=== PATIENT | female | born 1995 | race Caucasian/White ===

== ENCOUNTER 2017-09-04 02:49 | Emergency (ER) | payer OTHER ==
[~2017-09-04] VITALS: Ht 172.7 cm; Wt 70.0 kg
[~2017-09-04 02:49] MED LIST: CITA20TA4 PO; FERR325T51 PO; OMEP40CA PO
[2017-09-04 03:03] VITALS: TEMP 36.8; Ht 172.7 cm; Wt 70.0 kg
[2017-09-04] MEDS ORDERED: SODIUM CHLORIDE 0.9% 1000ML 1,000 ML IV STA (03:07)
[2017-09-04] MEDS ORDERED: ZLF/50 PO (03:17)
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
[2017-09-04] MEDS ORDERED: ONDANSETRON HOME PACK 4MG OD TAB ONE (03:26)
[2017-09-04 03:40] LABS: BASO % 0.5 %; BASO ABS # 0.04 K/uL (0-0.2); EOS % 0.4 %; EOS ABS # 0.03 K/uL (0-0.5); HEMATOCRIT 37.9 % (37-47); HEMOGLOBIN 12.8 g/dL (12.0-16.0); IG# 0.03 K/uL (0.00-0.02); LYMPH % 16.4 %; MEAN CELL VOLUME 76.9 fL (80-100); MEAN CORPUSCULAR HGB CONC 33.8 g/dl (32-36); MEAN PLATELET VOLUME 11.1 fL (7.4-10.4); MONO % 8.7 %; MONO ABS # 0.74 K/uL (0.11-0.59); NEUT % 73.6 %; NEUT ABS # 6.29 K/uL (1.4-6.5); PLATELET COUNT 283 K/uL (130-400); RED CELL DISTRIBUTION WIDTH CV 16.7 % (11.5-14.5); RED CELL DISTRIBUTION WIDTH SD 46.9 fL (36.4-46.3); WHITE BLOOD COUNT 8.53 K/uL (4.8-10.8)
[2017-09-04] MEDS ORDERED: OPTIRAY 320 IV PRN (03:45)
[2017-09-04 03:56] LABS: ALBUMIN 4.1 gm/dl (3.4-5.0); CALCIUM 9.1 mg/dl (8.5-10.1); CREATININE 0.74 mg/dl (0.60-1.20); POTASSIUM 3.7 mmol/L (3.5-5.1)
[2017-09-04 03:58] LABS: TOTAL PROTEIN 7.7 gm/dl (6.4-8.2)
[2017-09-04 04:38] LABS: ISTAT CREATININE 0.7 mg/dl (0.6-1.3); ISTAT IONIZED CALCIUM 1.23 mmol/l (1.12-1.32); ISTAT POTASSIUM 3.8 mEq/L (3.3-5.0)
[2017-09-04] MEDS ORDERED: ACETAMINOPHEN IV 100 ML IV STA (04:41)
[2017-09-04] MEDS ORDERED: KETOROLAC TROMETHAMINE 30 MG/ML VIAL IV STA (05:50)
[2017-09-04 05:55] VITALS: BP 125/88; PULSE 89; O2SAT 99
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
== END 2017-09-04 06:30 | disposition home or self-care (01) ==
LOC: EDBD 02:49 → C.EDB 02:52
DX: S09.90XA Unspecified injury of head, initial encounter (principal); M25.511 Pain in right shoulder; M25.521 Pain in right elbow; S60.511A Abrasion of right hand, initial encounter; S60.512A Abrasion of left hand, initial encounter; T14.8XXA Other injury of unspecified body region, initial encounter; V49.88XA Car occupant (driver) (passenger) injured in other specified transport accidents, initial encounter; Y92.488 Other paved roadways as the place of occurrence of the external cause; F17.210 Nicotine dependence, cigarettes, uncomplicated

== ENCOUNTER 2018-11-23 00:14 | Inpatient (IN) ==
[2018-11-23] MEDS ORDERED: OXYTOCIN 30 UNITS/500 ML BAG IV PRN ×2 (01:01→06:44)
[2018-11-23] MEDS ORDERED: PENICILLIN G POTASSIUM 3 MU in DEXTROSE 5% 100 ML IV PRN (01:01)
[2018-11-23] MEDS ORDERED: PENICILLIN G POTASSIUM 6 MU in DEXTROSE 5% 250 ML IV STA (01:01)
[2018-11-23] MEDS: LACTATED RINGER'S 1,000 ML IV PRN ×2 (01:09→02:54)
--- NOTE | 2018-11-23 01:09 | History & Physical Report ---
Date of Service November 23, 2018 Assessment & Plan (1) SROM (spontaneous rupture of membranes): 23 yo at 38.5 wks with SROM, in early labor VSS Afebrile FHR ressuring GBS+ Plan admit, monitor, labs, PCN, Epidural for pain History of Present Illness Chief Complaint: Leaking of fluids Primary Care Provider: Jackie Short MD Patient is a 23 yo at 38.5 wks who has been leaking amniotic fluid since 11 pm last night It has been clear Ctxs started right after Not vey painful yet +FM's Her has been complicated by 1) Chlamydia + at NOB, repeat x2 were negative 2) GBS+ 3) h/o anxiety, was on Zoloft, off meds, feels well Allergies Allergy/AdvReac Type Severity Reaction Status Date / Time shellfish derived Allergy Anaphylaxis Unverified 04/09/18 17:24 Home Medications Home Medications Medication Instructions Recorded Confirmed Type ferrous sulfate 325 mg PO DAILY 11/13/18 11/13/18 History vit-iron fum-folic ac 1 tab PO DAILY 11/13/18 11/13/18 History [ Vitamin] Patient History Medical History Chest pain (Acute) Anxiety (Chronic) Throat irritation (Resolved) Anxiety (Chronic) Chest pain (Inactive) Family History Other Hypertension Social History Preferred Language: Danish Communication Ability: Effective Visual Impairment: No Limitations Hearing Ability: Normal marital status: Single Feels Safe at Home: Yes Smoking Status: Former smoker Second Hand Exposure: No Hx Alcohol Use: No Hx Substance Use: No ENGAGEMENT LIAISON History Denies h/o STD's, no h/o HSV +Chlamydia per records Review of Systems All systems reviewed & are unremarkable except as noted in HPI & below Physical Exam Constitutional: WD/WN, vitals as above well developed and + thin Comfortably smiling Genitourinary: Amnisure positive VE; 3/ 80%/ -2, vertex Results & Data Vital Signs (Past 12 Hours) Vital Signs Temp Pulse Resp BP 11/23/18 00:37 36.9 C 95 H 18 131/88 Monitoring External Monitor Categ I Tocodynamometer [place]: ctxs q 2-3min
[2018-11-23 01:28] LABS: Mean Corpuscular Hgb Conc 35.1 g/dL (32-36); Mean Corpuscular Volume 76.9 fL (80-100); Mean Platelet Volume 10.5 fL (7.4-10.4); Platelet Count 324 K/uL (130-400); RDW Coefficient of Variation 17.8 % (11.5-14.5); Red Blood Count 4.81 M/uL (4.2-5.4)
[2018-11-23] MEDS ORDERED: fentaNYL citrate 100 MCG/2 ML VIAL ONE (01:50)
[2018-11-23] MEDS ORDERED: ePHEDrine sulfate 50 MG/ML AMP ONE (01:50)
[2018-11-23] MEDS ORDERED: BUPIVACAINE 0.25% 30 ML VIAL ONE (01:50)
[2018-11-23] MEDS ORDERED: fentaNYL 2MCG/ML ROPIV 1.25MG/ML 100 ML BAG EPI ONE (01:51)
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
[2018-11-23] MEDS ORDERED: NALBUPHINE HCL INJ 10 MG/ML AMP IV PRN (02:43)
[2018-11-23] MEDS ORDERED: fentaNYL 2MCG/ML ROPIV 1.25MG/ML 100 ML BAG EPI PRN (02:43)
[2018-11-23] MEDS ORDERED: DiphenhydrAMINE HCL 50 MG/ML VIAL IV PRN (02:43)
[2018-11-23] MEDS ORDERED: ePHEDrine sulfate 50 MG/ML AMP IV PRN (02:43)
[2018-11-23] MEDS ORDERED: LACTATED RINGER'S 1,000 ML IV PRN (02:43)
[2018-11-23] MEDS ORDERED: ONDANSETRON INJ 2 MG/ML 2 ML VIAL IV PRN (02:43)
[2018-11-23] MEDS ORDERED: NALOXONE HCL 0.4 MG/1 ML VIAL/CARP IV PRN (02:43)
[2018-11-23] MEDS ORDERED: NALOXONE HCL 1 MG in SODIUM CHLORIDE 0.9% 1000ML 1,000 ML IV PRN (02:43)
[2018-11-23] MEDS ORDERED: BENZOCAINE 20% AER SPR 82.5 GM CAN EXT PRN (06:44)
[2018-11-23] MEDS ORDERED: HYDROCORTISONE ACETATE 25 MG SUPP PR PRN (06:44)
[2018-11-23] MEDS ORDERED: ACETAMINOPHEN 325 MG TAB PO PRN (06:44)
[2018-11-23] MEDS ORDERED: VARICELLA VIRUS VACCINE LIVE VIAL SQ ONE (06:44)
[2018-11-23] MEDS ORDERED: SUPERCREAM 0.870% 15 GM JAR EXT PRN (06:44)
[2018-11-23] MEDS ORDERED: DIPHTHERIA/TETANUS/PERTUSSIS 0.5 ML SYR/VIAL IM ONE (06:44)
[2018-11-23] MEDS ORDERED: BISACODYL 10 MG SUPP PR PRN (06:44)
--- NOTE | 2018-11-23 06:49 | Procedure Note ---
Vaginal Delivery Summary Date of Service November 23, 2018 Supervising Physician Co-Signing Physician Notes Delivery note live male RAJAN over intact perineum with nuchal cord x1 reduced at delivery. Delayed cord clamping followed by cord blood and spontaneous delivery of intact placenta. No tears. EBL 200 ml. Final sponge and instrument count are correct. Mom and baby stable.
--- NOTE | 2018-11-23 08:07 | Anesthesia Procedure Note ---
Date of Service November 23, 2018 Anesthesia Post Epidural Note Vital Signs Vital Signs: Temp Pulse Resp BP Pulse Ox 11/23/18 07:47 92 H 127/83 11/23/18 07:33 91 H 127/79 11/23/18 07:17 89 118/75 11/23/18 07:05 91 H 94 11/23/18 07:02 88 126/65 11/23/18 07:00 95 H 95 11/23/18 06:55 102 H 93 11/23/18 06:50 93 H 93 11/23/18 06:49 98 H 18 139/75 11/23/18 06:45 106 H 95 11/23/18 06:40 111 H 93 11/23/18 06:38 103 H 133/63 11/23/18 06:35 110 H 94 11/23/18 06:30 112 H 18 94 11/23/18 06:25 105 H 87 L 11/23/18 06:20 117 H 95 11/23/18 06:15 106 H 96 11/23/18 06:10 91 H 94 11/23/18 06:07 89 136/69 11/23/18 06:05 95 H 94 11/23/18 06:00 92 H 18 95 11/23/18 05:55 96 H 96 11/23/18 05:54 92 H 134/76 11/23/18 05:50 88 95 11/23/18 05:45 92 H 96 11/23/18 05:40 89 96 11/23/18 05:38 93 H 137/89 11/23/18 05:35 106 H 96 11/23/18 05:30 95 H 18 94 11/23/18 05:25 95 H 94 11/23/18 05:22 96 H 119/76 11/23/18 05:20 89 94 11/23/18 05:15 104 H 95 11/23/18 05:10 36.8 C 88 93 11/23/18 05:07 96 H 131/72 11/23/18 05:05 104 H 96 11/23/18 05:00 92 H 18 94 11/23/18 04:55 89 92 11/23/18 04:52 88 120/74 11/23/18 04:50 95 H 94 11/23/18 04:45 99 H 93 11/23/18 04:40 98 H 94 11/23/18 04:37 97 H 127/84 11/23/18 04:35 91 H 94 11/23/18 04:30 98 H 95 11/23/18 04:25 98 H 94 11/23/18 04:22 96 H 130/84 11/23/18 04:20 93 H 95 11/23/18 04:15 94 H 95 11/23/18 04:10 96 H 93 11/23/18 04:08 96 H 122/85 11/23/18 04:05 88 94 11/23/18 04:00 91 H 18 93 11/23/18 03:55 90 95 11/23/18 03:52 92 H 136/78 11/23/18 03:50 90 94 11/23/18 03:45 93 H 94 11/23/18 03:40 94 H 93 11/23/18 03:37 83 141/83 H 11/23/18 03:35 97 H 94 11/23/18 03:30 89 18 94 11/23/18 03:25 102 H 96 11/23/18 03:23 90 112/67 11/23/18 03:20 86 94 11/23/18 03:15 85 94 11/23/18 03:10 79 93 11/23/18 03:05 85 95 11/23/18 03:04 36.7 C 11/23/18 03:03 90 123/84 11/23/18 03:00 94 H 94 11/23/18 02:58 89 120/78 11/23/18 02:55 90 114/66 98 11/23/18 02:54 100 H 109/62 11/23/18 02:52 94 H 113/70 11/23/18 02:50 91 H 119/71 98 11/23/18 02:48 102 H 127/74 11/23/18 02:46 103 H 113/68 11/23/18 02:45 106 H 97 11/23/18 02:44 100 H 114/77 11/23/18 02:40 98 H 94 11/23/18 02:37 99 H 94 11/23/18 02:35 109 H 97 11/23/18 02:30 95 H 97 11/23/18 02:25 85 97 11/23/18 02:20 102 H 98 11/23/18 02:16 88 131/79 11/23/18 02:15 90 95 11/23/18 01:06 36.9 C 95 H 18 131/88 11/23/18 00:37 36.9 C 95 H Notes Mental Status: alert / awake / arousable Patient Amnestic to Procedure: No Nausea / Vomiting: adequately controlled Pain: adequately controlled Airway Patency, RR, SpO2: stable & adequate BP & HR: stable & adequate Hydration State: stable & adequate Neuraxial Anesthesia: was administered and sensory block is resolving Anesthetic Complications: no major complications apparent and Pt Satisfied with anesthetic care Epidural: Removed without complications and With tip intact
[2018-11-23] MEDS: PRENATAL VITAMIN 1 TAB PO SCH (09:41)
[2018-11-23] MEDS: DOCUSATE SODIUM 100 MG CAP PO SCH ×2 (09:41→19:54)
[2018-11-23] MEDS: FERROUS SULFATE 325 MG TAB PO SCH (09:41)
[2018-11-23] MEDS ORDERED: NON-FORMULARY MEDICATION (Prenatal Vit-Iron Fum-Folic Ac [Prenatal Vitamin] 1 TAB) PO SCH (11:35)
[2018-11-23] MEDS ORDERED: FERROUS SULFATE 325 MG TAB PO SCH (11:45)
[2018-11-23] MEDS: IBUPROFEN 600 MG TAB PO PRN (19:52)
[2018-11-24] MEDS: IBUPROFEN 600 MG TAB PO PRN (04:23)
[2018-11-24 07:32] LABS: Hematocrit (blood only) 37.6 % (37-47); Hemoglobin 12.6 g/dL (12.0-16.0); Mean Corpuscular Hgb Conc 33.5 g/dL (32-36); Mean Platelet Volume 10.4 fL (7.4-10.4); Platelet Count 297 K/uL (130-400); RDW Coefficient of Variation 18.1 % (11.5-14.5); RDW Standard Deviation 52.2 fL (36.4-46.3); Red Blood Count 4.82 M/uL (4.2-5.4); White Blood Count 12.87 K/uL (4.8-10.8)
--- NOTE | 2018-11-24 08:50 | Obstetrical Progress Note ---
Date of Service November 24, 2018 Assessment & Plan (1) normal course: PPD #1 Pt doing well anticipate disch tomorrow Subjective Ambulation: ambulating normally Voiding: no voiding problems Passing Gas:: Yes Diet Tolerance:: regular diet Lochia:: Small Feeding Type:: breast feeding Review of Systems All systems reviewed & are unremarkable except as noted in HPI & below Physical Exam Vital Signs (Past 24 Hours) Last Vital Signs Temp 36.6 C 11/24/18 03:15 Pulse 88 11/24/18 03:15 Resp 14 11/24/18 03:15 BP 114/75 11/24/18 03:15 Pulse Ox 97 11/24/18 03:15 Constitutional WD/WN, vitals as above well developed and well nourished Eyes PERRL, conjunctivae normal, anicteric sclerae Neck trachea midline, no thyromegaly Respiratory normal respiratory effort, lungs clear to auscultation Auscultation: no crackles, no rales and no wheezes Cardiovascular RRR, no murmur, no edema Gastrointestinal (Abdomen) normal bowel sounds, soft, nontender, no hepatosplenomegaly Uterus is below umbilicus Musculoskeletal no cyanosis or clubbing, extremities motor strength 5/5 Skin no rashes, warm and dry Neurologic patellar DTR's 2+ bilat, sensation intact Psychiatric A+Ox3, euthymic affect Genitourinary normal external appearance
[2018-11-24] MEDS: IBUPROFEN SUSPENSION 100MG/5ML 120ML PO PRN ×2 (09:22→16:32)
[2018-11-24] MEDS: FERROUS SULFATE 325 MG TAB PO SCH (09:27)
[2018-11-24] MEDS: DOCUSATE SODIUM 100 MG CAP PO SCH ×2 (09:27→20:14)
[2018-11-24] MEDS: PRENATAL VITAMIN 1 TAB PO SCH (09:27)
[2018-11-24] MEDS ORDERED: BISACODYL 5 MG TABEC PO SCH (20:00)
[2018-11-25 07:08] LABS: Hematocrit (blood only) 37.8 % (37-47); Hemoglobin 12.8 g/dL (12.0-16.0)
[2018-11-25] MEDS: PRENATAL VITAMIN 1 TAB PO SCH (09:39)
[2018-11-25] MEDS: DOCUSATE SODIUM 100 MG CAP PO SCH (09:39)
[2018-11-25] MEDS: FERROUS SULFATE 325 MG TAB PO SCH (09:39)
[2018-11-25] MEDS: IBUPROFEN SUSPENSION 100MG/5ML 120ML PO PRN (09:43)
--- NOTE | 2018-11-25 10:21 | Obstetrical Progress Note ---
Date of Service November 25, 2018 Subjective doing well passing gas bottle feeding Physical Exam Constitutional: WD/WN, vitals as above comfortable Abdomen soft fundus firm no edema neg zac's for d/c home today Results & Data Vital Signs (Past 12 Hours) Vital Signs Temp Pulse Resp BP 11/25/18 07:25 36.9 C 82 20 118/77 11/24/18 23:30 36.5 C 77 18 124/78
== END 2018-11-25 13:30 | disposition home or self-care (01) | DRG 807 ==
LOC: OPB 00:14 → 4S1 00:19 → 4S2 08:56

== ENCOUNTER 2021-08-06 07:26 | Inpatient (IN) ==
[2021-08-06] MEDS ORDERED: OXYTOCIN 30 UNITS/500 ML BAG IV PRN ×3 (08:16→19:13)
[2021-08-06 08:40] LABS: Hematocrit (blood only) 35.7 % (37-47); Hemoglobin 11.6 g/dL (12.0-16.0); Mean Corpuscular Hemoglobin 27.4 pg (25-34); Mean Corpuscular Hgb Conc 32.5 g/dL (32-36); Mean Corpuscular Volume 84.2 fL (80-100); Mean Platelet Volume 11.1 fL (7.4-10.4); Platelet Count 224 K/uL (130-400); RDW Coefficient of Variation 18.5 % (11.5-14.5); RDW Standard Deviation 57.1 fL (36.4-46.3); Red Blood Count 4.24 M/uL (4.2-5.4); White Blood Count 10.14 K/uL (4.8-10.8)
[2021-08-06] MEDS ORDERED: PENICILLIN G POTASSIUM 6 MU in DEXTROSE 5% 250 ML IV STA (08:57)
[2021-08-06] MEDS: LACTATED RINGER'S 1,000 ML IV PRN ×2 (09:15→14:42)
--- NOTE | 2021-08-06 09:18 | History & Physical Report ---
Date of Service August 06, 2021 Assessment & Plan (1) Post-dates : Plan: Will start antibiotics for GBS start Oxytocin for induction Admission and Anticipated Discharge Date Admission Date: August 06, 2021 History of Present Illness Chief Complaint: induction of labor for post-dates Primary Care Provider: Jackie Short MD 25 F P1001 at 40.4 weeks admitted for induction of labor for post-dates. GBS is positive. Patient recently diagnosed with Covid on 06/16/22 ` Allergies Allergy/AdvReac Type Severity Reaction Status Date / Time shellfish derived Allergy Severe Anaphylaxis Verified 02/25/21 15:50 Home Medications Medication Instructions Recorded Confirmed Type vitamins no.144-folic 1 tab PO DAILY 02/25/21 02/25/21 History acid 400 mcg chewable tablet () Patient History Medical History Anxiety No current meds Normal echocardiogram Panic attack Right scapula fracture Surgical History Ganglion cyst Family History Other Hypertension Social History Smoking Status: Former smoker Tobacco Type: E-cigarettes / Vaping Age Started Using Tobacco: 19 (less than a year ); Age Quit Using Tobacco: 19 (less than a year ); packs per day: 0.05; Years Smoked: 1; Smoking End Date: 19; Number of Years Since Quit: 1; Second Hand Exposure: No; Do You Dip or Chew Tobacco: No; Tobacco Cessation Education Requested by Patient: No Hx Alcohol Use: No Hx Substance Use: No Preferred Language: Yoruba Communication Ability: Effective Visual Impairment: No Limitations Hearing Ability: Normal Outsole Flexer Required: No Beliefs That Will Affect Care: None marital status: Single Current Living Situation: Family and Significant Other Current Living Situation Comment: Lives with FOB, FOB mother current occupational status: unemployed Other Information That Helps Us Care for You: No Feels Safe at Home: Yes Safety Concerns: Feels Safe At This Time Childhood Exposure to Second-Hand Smoke: No caffeine: Yes (1 daily ) during the past year weight has: increased > 10 lbs Dental Care, Regularly: Yes Physical Activity Frequency: Daily Seatbelt Use: always Sunscreen Use: Yes Do you think of yourself as: straight/heterosexual Sexual Activity: has been sexually active within the last 12 months Gender Identity: Female Assistive Devices: None 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 Review of Systems All systems reviewed & are unremarkable except as noted in HPI & below Physical Exam Constitutional: WD/WN, vitals as above comfortable Eyes: PERRL, conjunctivae normal, anicteric sclerae Respiratory: normal respiratory effort, lungs clear to auscultation Cardiovascular: RRR, no murmur, no edema Skin: no rashes, warm and dry Neurologic: patellar DTR's 2+ bilat, sensation intact Psychiatric: A+Ox3, euthymic affect Genitourinary: OB Exam Abdomen: + fundal height and + vertex Manual OB Exam: + cervical dilation 2 cm, + cervical effacement 50% and + station high OB Exam Monitor Tracing: + external FHT monitor used, + external uterine monitor used, + category I and + normal FHT variability EFW7.5 lbs Results & Data ([facility]) Vital Signs (Past 12 Hours) Vital Signs Temp Pulse Resp BP 08/06/21 07:53 36.5 C 104 H 18 124/80 08/06/21 07:33 104 H 124/80 08/06/21 07:31 36.5 C 20 Laboratory Results 08/06/21 08:24 WBC 10.14 RBC 4.24 Hgb 11.6 L Hct 35.7 L MCV 84.2 MCH 27.4 MCHC 32.5 RDW Std Deviation 57.1 H RDW Coeff of Geena 18.5 H Plt Count 224 MPV 11.1 H Code Status & VTE Plan VTE Prophylaxis Plan VTE Prophylaxis will be ordered: No Monitoring External Monitor Cat 1
[2021-08-06 11:51] LABS: Amphetamines+Metham, Urine Neg (Neg); Barbiturates, Urine Neg (Neg); Benzodiazepine, Urine Neg (Neg); Cocaine, Urine Neg (Neg); MDMA (Ecstacy), Urine Neg (Neg); Methadone, Urine Neg (Neg); Opiate, Urine Neg (Neg); Phencyclidine, Urine Neg (Neg)
[2021-08-06] MEDS ORDERED: PENICILLIN G POTASSIUM 3 MU in DEXTROSE 5% 100 ML IV PRN (11:57)
--- NOTE | 2021-08-06 13:37 | Labor Progress Brief Note ---
Date of Service August 06, 2021 Assessment & Plan Admission and Anticipated Discharge Date Admission Date: August 06, 2021 Physical Exam Genitourinary: Manual OB Exam: + cervical dilation 4 cm, + cervical effacement 80% and 90%, + station -2 and + amniotic fluid clear OB Exam Monitor Tracing: + external FHT monitor used, + external uterine monitor used, + category I and + normal FHT variability AROM with Amni-hook clear fluid Results & Data ([facility]) Vital Signs (Past 12 Hours) Vital Signs Temp Pulse Resp BP 08/06/21 13:00 96 H 119/78 08/06/21 12:29 84 118/70 08/06/21 12:00 85 114/68 08/06/21 11:30 89 118/83 08/06/21 11:21 84 117/79 08/06/21 11:00 93 H 115/80 08/06/21 10:28 88 115/71 08/06/21 09:45 36.6 C 20 08/06/21 07:53 36.5 C 104 H 18 124/80 08/06/21 07:33 104 H 124/80 08/06/21 07:31 36.5 C 20
--- NOTE | 2021-08-06 14:04 | Anesthesiology Consultation ---
Date of Service August 06, 2021 Assessment & Plan (1) Encounter for pre-operative examination: Chart Review Chart Review: Acceptable Risk for Labor Epidural History Height/Weight Height: 5 ft 7 in Weight: 73.936 kg Allergies Allergy/AdvReac Type Severity Reaction Status Date / Time shellfish derived Allergy Severe Anaphylaxis Verified 08/06/21 12:06 iodine Allergy Anaphylaxis Verified 08/06/21 12:06 Medications Home Medications Medication Instructions Recorded Confirmed Last Taken vitamins no.144-folic 1 tab PO DAILY 02/25/21 08/06/21 08/05/21 acid 400 mcg chewable tablet () Active Medications Generic Name Dose Route Start Last Admin Trade Name Freq PRN Reason Stop Dose Admin Lactated Ringer's 1,000 mls @ 125 mls/hr 08/06/21 08:16 08/06/21 09:15 Lr IV 08/08/21 08:15 125 mls/hr .Q8H PRN Administration L&D Protocol Protocol Oxytocin 30 units in 500 mls @ 7 mls/hr 08/06/21 09:15 08/06/21 12:00 Pitocin IV 08/08/21 09:14 0.42 units/hr .Q24H PRN 7 mls/hr Labor Induction/Augmentation Titration Protocol 0.42 UNITS/HR Past Medical History Medical History Anxiety No current meds Normal echocardiogram Panic attack Right scapula fracture Past Family History Family History Other Hypertension Past Surgical History Surgical History Ganglion cyst Social History Smoking Status: Former smoker tobacco type: e-cigarettes Do You Dip or Chew Tobacco: No Smoking End Date: Hx Alcohol Use: No Alcohol type: beer alcohol intake frequency: other Alcohol Intake Frequency Comment: one a week when not pregant Hx Substance Use: No substance use type: does not use Physical Exam Vital Signs Last Vital Signs Temp 36.6 C 08/06/21 09:45 Pulse 99 H 08/06/21 14:01 Resp 20 08/06/21 09:45 BP 128/94 08/06/21 14:01 Testing Laboratory Results 08/06/21 08:24
[2021-08-06] MEDS ORDERED: SODIUM CHLORIDE 0.9% INJ 10 ML VIAL ONE (14:10)
[2021-08-06] MEDS ORDERED: BUPIVACAINE 0.25% 30 ML VIAL ONE (14:10)
[2021-08-06] MEDS ORDERED: ePHEDrine sulfate 50 MG/ML AMP ONE (14:10)
[2021-08-06] MEDS ORDERED: fentaNYL 2MCG/ML ROPIVACAINE 1.25MG/ML 100 ML BAG EPI ONE (14:11)
[2021-08-06] MEDS ORDERED: fentaNYL citrate 100 MCG/2 ML VIAL ONE (14:11)
[2021-08-06] MEDS ORDERED: fentaNYL 2MCG/ML ROPIVACAINE 1.25MG/ML 100 ML BAG EPI PRN (14:49)
[2021-08-06] MEDS ORDERED: NALOXONE HCL 0.4 MG/1 ML VIAL/CARP IV PRN (14:49)
[2021-08-06] MEDS ORDERED: ONDANSETRON INJ 2 MG/ML 2 ML VIAL IV PRN (14:49)
[2021-08-06] MEDS ORDERED: NALOXONE HCL 1 MG in SODIUM CHLORIDE 0.9% 1000ML 1,000 ML IV PRN (14:49)
[2021-08-06] MEDS ORDERED: ePHEDrine sulfate 50 MG/ML AMP IV PRN (14:49)
--- NOTE | 2021-08-06 16:16 | Delivery Summary ---
Vaginal Delivery Summary Date of Service August 06, 2021 Vaginal Delivery Summary Delivery Note live male RAJAN over intact perineum with delayed cord clamping and Apgars 8/9 weight pending. Cord blood obtained followed by spontaneous delivery of intact placenta. No tears. EBL 100 ml. Final sponge and instrument count are correct. Mom and baby stable.
--- NOTE | 2021-08-06 17:57 | Anesthesia Procedure Note ---
Date of Service August 06, 2021 Anesthesia Post Epidural Note Vital Signs Vital Signs: Temp Pulse Resp BP Pulse Ox 36.6 C 72 18 123/69 98 08/06/21 13:55 08/06/21 17:30 08/06/21 17:00 08/06/21 17:30 08/06/21 16:10 Notes Mental Status: alert / awake / arousable and participated in evaluation Nausea / Vomiting: adequately controlled Pain: adequately controlled Airway Patency, RR, SpO2: stable & adequate BP & HR: stable & adequate Hydration State: stable & adequate Neuraxial Anesthesia: was administered and sensory block is resolving Anesthetic Complications: no major complications apparent Epidural: Removed without complications and With tip intact
[2021-08-06] MEDS ORDERED: BENZOCAINE 20% AER SPR 82.5 GM CAN EXT PRN (19:13)
[2021-08-06] MEDS ORDERED: bisacodyL 10 MG SUPP PR PRN (19:13)
[2021-08-06] MEDS ORDERED: SUPERCREAM 0.870% 15 GM JAR EXT PRN (19:13)
[2021-08-06] MEDS ORDERED: DIPHTHERIA/TETANUS/PERTUSSIS 0.5 ML SYR/VIAL IM ONE (19:13)
[2021-08-06] MEDS ORDERED: HYDROCORTISONE ACETATE 25 MG SUPP PR PRN (19:13)
[2021-08-06] MEDS ORDERED: ACETAMINOPHEN 325 MG TAB PO PRN (19:13)
[2021-08-06] MEDS: DOCUSATE SODIUM 100 MG CAP PO SCH (20:26)
[2021-08-06] MEDS: IBUPROFEN 600 MG TAB PO PRN (21:41)
[2021-08-07] MEDS: IBUPROFEN 600 MG TAB PO PRN ×3 (04:07→20:17)
[2021-08-07 06:22] LABS: Hematocrit (blood only) 35.1 % (37-47); Hemoglobin 11.4 g/dL (12.0-16.0); Mean Corpuscular Hemoglobin 27.1 pg (25-34); Mean Corpuscular Hgb Conc 32.5 g/dL (32-36); Mean Corpuscular Volume 83.6 fL (80-100); Mean Platelet Volume 11.5 fL (7.4-10.4); Platelet Count 229 K/uL (130-400); RDW Coefficient of Variation 18.4 % (11.5-14.5); RDW Standard Deviation 56.6 fL (36.4-46.3)
[2021-08-07] MEDS: PRENATAL VITAMIN 1 TAB PO SCH (07:51)
[2021-08-07] MEDS: DOCUSATE SODIUM 100 MG CAP PO SCH ×2 (07:51→20:17)
[2021-08-07] MEDS ORDERED: NON-FORMULARY MEDICATION (Prenatal No.144-Folic Acid [Prenatal] 400 mcg Tablet,Chewable) PO SCH (09:00)
--- NOTE | 2021-08-07 10:01 | Obstetrical Progress Note ---
Date of Service August 07, 2021 Assessment & Plan (1) normal course: pt doing well No complaints CYS involved in pt's care anticipate disch tomorrow Results & Data ([facility]) Vital Signs (Past 12 Hours) Vital Signs Temp Pulse Pulse Resp BP Pulse Ox 08/07/21 07:40 36.5 C 76 16 116/76 98 08/07/21 04:00 36.6 C 69 16 110/67 98 08/06/21 23:10 36.6 C 76 17 115/75 98
--- NOTE | 2021-08-07 10:13 | Obstetrical Progress Note ---
Date of Service August 07, 2021 Assessment & Plan (1) normal course: PPD #1 pt doing well No complaints CYS involved in pt's care anticipate VD Results & Data ([facility]) Vital Signs (Past 12 Hours) Vital Signs Temp Pulse Pulse Resp BP Pulse Ox 08/07/21 07:40 36.5 C 76 16 116/76 98 08/07/21 04:00 36.6 C 69 16 110/67 98 08/06/21 23:10 36.6 C 76 17 115/75 98
[2021-08-07] MEDS ORDERED: bisacodyL 5 MG TABEC PO SCH (20:00)
[2021-08-08 06:20] LABS: Hematocrit (blood only) 33.8 % (37-47)
[2021-08-08] MEDS: DOCUSATE SODIUM 100 MG CAP PO SCH (08:34)
[2021-08-08] MEDS: PRENATAL VITAMIN 1 TAB PO SCH (08:34)
[2021-08-08] MEDS: IBUPROFEN 600 MG TAB PO PRN (08:34)
--- NOTE | 2021-08-08 10:28 | Obstetrical Progress Note ---
Date of Service August 08, 2021 Subjective Ambulation: ambulating normally Voiding: no voiding problems Passing Gas:: Yes Diet Tolerance:: regular diet Lochia:: Small Feeding Type:: breast feeding Current Pain Level(1-10): 0 doing well Physical Exam Constitutional WD/WN, vitals as above comfortable abdomen soft and non-tender fundus firm no edema neg [facility] for d/c Results & Data ([facility]) Vital Signs (Past 12 Hours) Vital Signs Temp Pulse Pulse Resp BP Pulse Ox 08/08/21 09:41 36.7 C 75 69 18 103/71 97 08/08/21 07:28 36.7 C 75 18 103/71 08/08/21 00:27 36.5 C 78 16 124/81 97 Laboratory Results Laboratory Results - last 72 hr 08/06/21 08/06/21 08/06/21 08:24 10:14 Unknown WBC 10.14 RBC 4.24 Hgb 11.6 L Hct 35.7 L MCV 84.2 MCH 27.4 MCHC 32.5 RDW Std Deviation 57.1 H RDW Coeff of Geena 18.5 H Plt Count 224 MPV 11.1 H Ur Butalbital Confirm Cancelled Urine Opiates Screen Neg Cancelled U Codeine Confrm GC/MS Cancelled Ur Morphine (GC/MS) Cancelled Ur Hydrocodone (GC/MS) Cancelled U Norhydrocodone Conf Cancelled Ur Oxycodone Screen Cancelled U Noroxycodone Confirm Cancelled Ur Oxycodone GC/MS Cancelled U Oxymorphone GC/MS Cancelled EDDP Confirm Cancelled Ur Methadone, Qual Neg Cancelled Ur Methadone Cancelled Ur Hydromorphone (GC/MS) Cancelled Urine Barbiturates Neg Cancelled Ur Phencyclidine Scrn Cancelled Ur Phencyclidine (PCP) Neg Urine PCP Confirm Cancelled Ur Amphetamines Screen Cancelled U Amphetamines Confirm Cancelled U Amphetamin/Meth Scrn Neg Methamphetamine GC/MS Cancelled MDMA (Ecstasy) Screen Neg Ur Amobarbital GC/MS Cancelled U Pentobarbital GC/MS Cancelled U Phenobarbital GC/MS Cancelled U Secobarbital GC/MS Cancelled U a-LK-Owwkeshrf GC/MS Cancelled U Benzodiazepines Scrn Neg Cancelled U 7-Aminoclonazepam Screen Cancelled Ur Nordiazepam GC/MS Cancelled U OH-ethylfluraz GC/MS Cancelled U Lorazepam Cnf GC/MS Cancelled U Oxazepam Confm GC/MS Cancelled Ur Temazepam Cnf GC/MS Cancelled U a-Hydroxytriaz GC/MS Cancelled U z-CA-Kmsoozpbu Cancelled Urine Cocaine Cancelled Ur Cocaine Metabolite Neg U Cocaine Metab Confirm Cancelled Tetrahydrocannabinol Cancelled U Marijuana (THC) Screen Neg Cancelled Drug Screen Comment Cancelled Reference Lab Cancelled 08/07/21 08/08/21 05:57 06:00 WBC 12.50 H RBC 4.20 Hgb 11.4 L 11.0 L Hct 35.1 L 33.8 L MCV 83.6 MCH 27.1 MCHC 32.5 RDW Std Deviation 56.6 H RDW Coeff of Geena 18.4 H Plt Count 229 MPV 11.5 H Ur Butalbital Confirm Urine Opiates Screen U Codeine Confrm GC/MS Ur Morphine (GC/MS) Ur Hydrocodone (GC/MS) U Norhydrocodone Conf Ur Oxycodone Screen U Noroxycodone Confirm Ur Oxycodone GC/MS U Oxymorphone GC/MS EDDP Confirm Ur Methadone, Qual Ur Methadone Ur Hydromorphone (GC/MS) Urine Barbiturates Ur Phencyclidine Scrn Ur Phencyclidine (PCP) Urine PCP Confirm Ur Amphetamines Screen U Amphetamines Confirm U Amphetamin/Meth Scrn Methamphetamine GC/MS MDMA (Ecstasy) Screen Ur Amobarbital GC/MS U Pentobarbital GC/MS U Phenobarbital GC/MS U Secobarbital GC/MS U [id number]-Idhrrffad GC/MS U Benzodiazepines Scrn U 7-Aminoclonazepam Screen Ur Nordiazepam GC/MS U OH-ethylfluraz GC/MS U Lorazepam Cnf GC/MS U Oxazepam Confm GC/MS Ur Temazepam Cnf GC/MS U a-Hydroxytriaz GC/MS U [id number] Urine Cocaine Ur Cocaine Metabolite U Cocaine Metab Confirm Tetrahydrocannabinol U Marijuana (THC) Screen Drug Screen Comment Reference Lab
--- NOTE | 2021-08-23 16:00 | Coding Query ---
CODING QUERY To promote full compliance with coding requirements relating to patient care, provider participation is requested in all cases of vending machine coin collector uncertainty. Please assist us with the question(s) below: Coding Question(s): The H&P documents, "Patient recently diagnosed with Covid on 06/16/22". Please specify below, in your clinical opinion. ( ) COVID-19 infection during this admission (x ) History of COVID-19 infection with no current infection on this admission ( ) No Current Covid-19 and no past Covid-19 ( ) Other: Please Specify Physician's Response(s): Thank you Nissa Chaudhry Principal Diagnosis: "that condition established after study, to be chiefly responsible for occasioning the admission of the patient to the hospital for care." Co-Existing Principal Diagnosis: "when two or more diagnoses equally meet the criteria for principal diagnosis as determined by the circumstances of admission, diagnostic work up, and/or therapy provided, and the Alphabetic Index, Tabular List, or another coding guideline does not provide sequencing direction, any one of the diagnoses may be sequenced first." "When the physician has documented what appears to be a current diagnosis in the body of the record, but has not included the diagnosis in the final diagnostic statement, the physician should be asked whether the diagnosis should be added." (Source Coding [facility] 2 QTR90. p3-4) SIVAN
== END 2021-08-08 12:30 | disposition home or self-care (01) | DRG 807 ==
LOC: 4S1 07:26 → 4S2 20:02

== ENCOUNTER 2022-10-26 07:35 | Inpatient (IN) ==
[2022-10-26] MEDS ORDERED: LIDOCAINE 1% LOCAL 20 ML VIAL INFIL PRN (08:53)
[2022-10-26] MEDS ORDERED: OXYTOCIN 30 UNITS/500 ML BAG IV PRN ×3 (08:53→19:11)
[2022-10-26] MEDS: LACTATED RINGER'S 1,000 ML IV PRN ×3 (08:55→14:19)
[2022-10-26] MEDS ORDERED: miSOPROStoL 50 MCG TAB PO ONE (08:58)
[2022-10-26] MEDS ORDERED: PENICILLIN G POTASSIUM 6 MU in DEXTROSE 5% 250 ML IV STA (09:12)
--- NOTE | 2022-10-26 09:12 | History & Physical Report ---
Date of Service October 26, 2022 Assessment & Plan (1) Post-dates : Plan: Cytotec orally for cervical ripening (2) Group B streptococcal carriage complicating : Plan: IV antibiotic prophylaxis Admission and Anticipated Discharge Date Admission Date: October 26, 2022 History of Present Illness Chief Complaint: induction of labor Primary Care Provider: Jackie Short MD 27 F P2002 at 40.3 weeks admitted for induction of labor for post dates . GBS is positive. covid is negative. Allergies Allergy/AdvReac Type Severity Reaction Status Date / Time shellfish derived Allergy Severe Anaphylaxis Verified 10/26/22 09:08 iodine Allergy Anaphylaxis Verified 10/26/22 09:08 Home Medications Medication Instructions Recorded Confirmed Type vitamins no.144-folic 1 tab PO DAILY 02/25/21 08/06/21 History acid 400 mcg chewable tablet () ferrous sulfate 325 mg (65 mg 325 mg PO TID 10/26/22 10/26/22 History iron) tablet (Iron (ferrous sulfate)) Patient History Medical History Anemia Anxiety No current meds Panic attack Right scapula fracture Family History Other Hypertension Social History Smoking Status: Never smoker Tobacco Type: E-cigarettes / Vaping Age Started Using Tobacco: 19 (less than a year ); Age Quit Using Tobacco: 19 (less than a year ); packs per day: 0.05; Second Hand Exposure: Yes; Do You Dip or Chew Tobacco: No; Tobacco Cessation Education Requested by Patient: No Hx Alcohol Use: No Hx Substance Use: No Preferred Language: Lebanese Communication Ability: Effective Visual Impairment: No Limitations Hearing Ability: Normal Male Infertility Specialist Required: No Beliefs That Will Affect Care: None marital status: Single Current Living Situation: Family and Significant Other Current Living Situation Comment: Man Mother and Father, Alek (FOB), 2 children current occupational status: unemployed Other Information That Helps Us Care for You: No Feels Safe at Home: Yes Safety Concerns: Feels Safe At This Time Childhood Exposure to Second-Hand Smoke: No caffeine: Yes (1 daily ) during the past year weight has: increased > 10 lbs Dental Care, Regularly: Yes Physical Activity Frequency: Daily Seatbelt Use: always Sunscreen Use: Yes Do you think of yourself as: straight/heterosexual Sexual Activity: has been sexually active within the last 12 months Gender Identity: Female Assistive Devices: None 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 Review of Systems All systems reviewed & are unremarkable except as noted in HPI & below Physical Exam Constitutional: WD/WN, vitals as above Eyes: PERRL, conjunctivae normal, anicteric sclerae Respiratory: normal respiratory effort, lungs clear to auscultation Cardiovascular: RRR, no murmur, no edema Gastrointestinal (Abdomen): Inspection/Auscultation: abdomen normal to inspection Musculoskeletal: Extremities: extremities normal to inspection Skin: no rashes, warm and dry Neurologic: patellar DTR's 2+ bilat, sensation intact Psychiatric: A+Ox3, euthymic affect Genitourinary: no vaginal lesions, no adnexal mass Manual OB Exam: + cervical dilation 2 cm, + cervical effacement 50% and + station -2 OB Exam Monitor Tracing: + external FHT monitor used, + external uterine monitor used, + category I and + normal FHT variability Will give Cytotec 50 mcg for ripening Results & Data Vital Signs (Past 12 Hours) Vital Signs Temp Pulse Resp BP 10/26/22 08:03 90 116/71 10/26/22 08:00 36.6 C 16 116/71 Laboratory Results Laboratory Results - last 48 hr 10/26/22 08:20 SARS-CoV-2, RNA, NAAT NEGATIVE
[2022-10-26 09:53] LABS: Hematocrit (blood only) 33.1 % (37.0-47.0); Hemoglobin 10.9 g/dl (12.0-16.0); Mean Corpuscular Hemoglobin 26.3 pg (25.0-34.0); Mean Corpuscular Hgb Conc 32.9 g/dL (32.0-36.0); Mean Platelet Volume 11.4 fL (9.4-12.4); Platelet Count 202 K/uL (130-400); RDW Coefficient of Variation 21.2 % (11.5-14.5); RDW Standard Deviation 59.4 fL (36.4-46.3); Red Blood Count 4.14 M/uL (4.20-5.40); White Blood Count 8.06 K/ul (4.8-10.8)
[2022-10-26] MEDS: PENICILLIN G POTASSIUM 3 MU in DEXTROSE 5% 100 ML IV PRN ×2 (13:16→17:18)
--- NOTE | 2022-10-26 13:22 | Labor Progress Brief Note ---
Date of Service October 26, 2022 Assessment & Plan Admission and Anticipated Discharge Date Admission Date: October 26, 2022 Physical Exam Genitourinary: Manual OB Exam: + cervical dilation 3 cm and 4 cm, + cervical effacement 70%, + station -2 and + amniotic fluid (AROM with Amni-hook clear fluid) clear Results & Data Vital Signs (Past 12 Hours) Vital Signs Temp Pulse Resp BP 10/26/22 12:52 85 118/72 10/26/22 12:36 72 124/77 10/26/22 12:05 72 117/74 10/26/22 11:50 81 116/75 10/26/22 11:37 75 115/73 10/26/22 11:10 18 10/26/22 11:10 36.6 C 18 10/26/22 11:21 83 116/77 10/26/22 11:12 78 119/76 10/26/22 10:50 82 114/76 10/26/22 10:38 83 120/79 10/26/22 10:07 72 120/70 10/26/22 09:51 78 129/68 10/26/22 09:35 89 121/79 10/26/22 08:03 36.6 C 90 116/71 10/26/22 08:00 36.6 C 16 116/71
[2022-10-26] MEDS ORDERED: fentaNYL citrate PF 100 MCG/2 ML VIAL ONE (13:27)
[2022-10-26] MEDS ORDERED: ePHEDrine sulfate 50 MG/ML AMP ONE (13:27)
[2022-10-26] MEDS ORDERED: SODIUM CHLORIDE 0.9% PF INJ 10 ML VIAL ONE (13:27)
[2022-10-26] MEDS ORDERED: BUPIVACAINE 0.25% PF 30 ML VIAL ONE (13:28)
[2022-10-26] MEDS ORDERED: fentaNYL 2MCG/ML ROPIVACAINE 1.25MG/ML 100 ML BAG EPI ONE (13:28)
[2022-10-26] MEDS ORDERED: LIDOCAINE 2%/EPINEPHRINE 1:200,000 20 ML PF ONE (13:28)
[2022-10-26] MEDS ORDERED: diphenhydrAMINE 50 MG/ML VIAL IV PRN (13:41)
[2022-10-26] MEDS ORDERED: NALOXONE HCL 0.4 MG/1 ML VIAL/CARP IV PRN (13:41)
[2022-10-26] MEDS ORDERED: NALOXONE HCL 1 MG in SODIUM CHLORIDE 0.9% 1000ML 1,000 ML IV PRN (13:41)
[2022-10-26] MEDS ORDERED: NALBUPHINE HCL INJ 10 MG/ML AMP IV PRN (13:41)
[2022-10-26] MEDS ORDERED: ePHEDrine sulfate 50 MG/ML AMP IV PRN (13:41)
[2022-10-26] MEDS ORDERED: ONDANSETRON INJ 2 MG/ML 2 ML VIAL IV PRN (13:41)
[2022-10-26] MEDS ORDERED: fentaNYL 2MCG/ML ROPIVACAINE 1.25MG/ML 100 ML BAG EPI PRN (13:41)
--- NOTE | 2022-10-26 13:52 | Anesthesiology Consultation ---
Date of Service October 26, 2022 Assessment & Plan Chart Review Chart Review: Acceptable Risk for Labor Epidural Consults Requested none ASA ASA2 Proposed Anesthesia Anesthesia Type: Labor Epidural Risk / Benefits Reviewed With: PT / POA / Parent / Guardian, Accepts Plan and Informed Consent Obtained History Height/Weight Height: 5 ft 7 in Weight: 76.204 kg Allergies Allergy/AdvReac Type Severity Reaction Status Date / Time shellfish derived Allergy Severe Anaphylaxis Verified 10/26/22 09:08 iodine Allergy Anaphylaxis Verified 10/26/22 09:08 Medications Home Medications Medication Instructions Recorded Confirmed Last Taken vitamins no.144-folic 1 tab PO DAILY 02/25/21 08/06/21 10/26/22 06:00 acid 400 mcg chewable tablet () ferrous sulfate 325 mg (65 mg 325 mg PO TID 10/26/22 10/26/22 10/26/22 iron) tablet (Iron (ferrous sulfate)) Active Medications Generic Name Dose Route Start Last Admin Trade Name Freq PRN Reason Stop Dose Admin Penicillin G Potassium 3 mu/ 106 mls @ 100 mls/hr 10/26/22 11:53 10/26/22 13:16 Dextrose IV 11/05/22 11:52 100 mls/hr Q4H PRN Administration GBS(+) Until Delivery Lactated Ringer's 1,000 mls @ 125 mls/hr 10/26/22 08:53 10/26/22 13:25 Lr IV 10/28/22 08:52 999 mls/hr .Q8H PRN Infusion L&D Protocol Protocol Past Medical History Medical History Anemia Anxiety No current meds Panic attack Right scapula fracture Exercise / Class Metabolic Activity II 4-5 Yardwork/Stairs/Walk up hill Past Family History Family History Other Hypertension Past Anesthesia History No Hx of Anesthesia Complications and No Family Hx of Anesthesia Complications History of PONV No Hx of PONV and No Hx of Motion Sickness Social History Smoking Status: Never smoker tobacco type: e-cigarettes Do You Dip or Chew Tobacco: No Hx Alcohol Use: No Alcohol type: beer alcohol intake frequency: other Hx Substance Use: No substance use type: does not use Physical Exam Vital Signs Last Vital Signs Temp 97.9 F 10/26/22 13:16 Pulse 75 10/26/22 13:49 Resp 18 10/26/22 11:10 BP 132/77 10/26/22 13:20 Pulse Ox 99 10/26/22 13:49 ENMT Mouth: no dentition abnormality Thyromental Distance: > or= 3.5 Finger Breadths Mallampati Class: II Neck normal visual inspection Respiratory normal respiratory effort Auscultation: lungs clear to auscultation bilaterally Cardiovascular Rate/Rhythm: regular rate and regular rhythm Testing Laboratory Results 10/26/22 09:09
[2022-10-26] MEDS ORDERED: NURSING L&D Epidural Breakthrough Pain Update ONE (14:44)
[2022-10-26] MEDS ORDERED: Nursing to Pharmacy Communication SCH (14:45)
[2022-10-26] MEDS ORDERED: fentaNYL citrate PF 100 MCG/2 ML VIAL EPI STA (15:21)
[2022-10-26] MEDS ORDERED: BUPIVACAINE 0.25% PF 30 ML VIAL EPI ONE (15:23)
--- NOTE | 2022-10-26 15:30 | Anesthesia Procedure Note ---
Date of Service October 26, 2022 Anesthesia Epidural Re-Dose Vital Signs Temp Pulse Resp BP Pulse Ox 97.9 F 85 18 117/75 99 10/26/22 14:49 10/26/22 15:27 10/26/22 15:00 10/26/22 15:27 10/26/22 15:24 Notes Pain Intensity: 3 Dilatation (cm): 5.0 Effacement (%): 70 Called by nursing to evaluate epidural as the patient is having increased pain. The epidural was re-dosed with the following medications after negative aspiration of the epidural catheter for CSF/HEME. 3mL of 0.25% Bupivacaine and 50mcg of fentanyl. After Epidural Re-Dose Mental Status: alert / awake / arousable Pain: improving with treatment Airway Patency, RR, SpO2: stable & adequate BP & HR: stable & adequate
--- NOTE | 2022-10-26 18:43 | Delivery Summary ---
Vaginal Delivery Summary Date of Service October 26, 2022 Vaginal Delivery Summary Delivery Note live male RAJAN with nuchal cord x1 reduced at time of delivery. Cord blood obtained followed by spontaneous delivery of intact placenta. No tears. EBL 150 ml. Final sponge and instrument count are correct. Mom and baby stable.
[2022-10-26] MEDS ORDERED: DIPHTHERIA/TETANUS/PERTUSSIS 0.5mL SYR/VIAL (Age 7+yrs) IM ONE (19:11)
[2022-10-26] MEDS ORDERED: ACETAMINOPHEN 325 MG TAB PO PRN (19:11)
[2022-10-26] MEDS ORDERED: BENZOCAINE 20% AER SPR 82.5 GM CAN EXT PRN (19:11)
[2022-10-26] MEDS ORDERED: bisacodyL 10 MG SUPP PR PRN (19:11)
[2022-10-26] MEDS ORDERED: HYDROCORTISONE ACETATE 25 MG SUPP PR PRN (19:11)
--- NOTE | 2022-10-26 19:17 | Anesthesia Procedure Note ---
Date of Service October 26, 2022 Anesthesia Post Epidural Note Vital Signs Vital Signs: Temp Pulse Resp BP Pulse Ox 97.9 F 61 16 126/71 98 10/26/22 18:30 10/26/22 19:12 10/26/22 18:45 10/26/22 19:12 10/26/22 18:24 Pain Intensity Left Lower Abdomen: Pain Intensity: 4 Notes Mental Status: alert / awake / arousable and participated in evaluation Nausea / Vomiting: adequately controlled Pain: adequately controlled Airway Patency, RR, SpO2: stable & adequate BP & HR: stable & adequate Hydration State: stable & adequate Neuraxial Anesthesia: was administered and sensory block is resolving Anesthetic Complications: no major complications apparent and Pt Satisfied with anesthetic care Epidural: Removed without complications and With tip intact
[2022-10-26] MEDS ORDERED: NON-FORMULARY MEDICATION (Ferrous Sulfate [Iron (Ferrous Sulfate)] 325 mg (65 mg iron) Tab PO SCH (21:00)
[2022-10-26] MEDS: DOCUSATE SODIUM 100 MG CAP PO SCH (21:06)
[2022-10-27] MEDS: IBUPROFEN 600 MG TAB PO PRN ×4 (00:22→15:03)
[2022-10-27 07:13] LABS: Hematocrit (blood only) 31.2 % (37.0-47.0); Hemoglobin 10.7 g/dl (12.0-16.0); Mean Corpuscular Hgb Conc 34.3 g/dL (32.0-36.0); Mean Corpuscular Volume 78.8 fL (80.0-100.0); Mean Platelet Volume 11.5 fL (9.4-12.4); Platelet Count 204 K/uL (130-400); RDW Coefficient of Variation 20.5 % (11.5-14.5); RDW Standard Deviation 56.8 fL (36.4-46.3); Red Blood Count 3.96 M/uL (4.20-5.40); White Blood Count 9.93 K/ul (4.8-10.8)
[2022-10-27] MEDS ORDERED: FERROUS SULFATE 325 MG TAB PO SCH (08:00)
[2022-10-27] MEDS ORDERED: PRENATAL VITAMIN 1 TAB PO SCH (08:00)
[2022-10-27] MEDS: DOCUSATE SODIUM 100 MG CAP PO SCH (08:37)
--- NOTE | 2022-10-27 08:44 | Obstetrical Progress Note ---
Date of Service October 27, 2022 Assessment & Plan Admission and Anticipated Discharge Date Admission Date: October 26, 2022 Subjective Patient is seen and examined. She feels well, no complaints. Ambulating without dizziness Voiding without difficulty Tolerating regular diet with out N&V Bleeding is minimal No fever/ chills/ CP/ SOB/ N&V/ Leg pain Breast feeding without problems Vital Signs Temp Pulse Resp BP Pulse Ox O2 Del Method 10/27/22 07:15 36.6 C 74 16 106/61 Room Air 10/27/22 04:20 36.4 C L 72 16 112/69 97 Room Air 10/27/22 00:15 36.4 C L 76 16 110/67 97 Room Air 10/26/22 21:45 36.6 C 79 18 112/68 97 Room Air 10/26/22 20:45 36.6 C 18 Lab Results 10/26/22 10/26/22 10/27/22 Range/Units 08:20 09:09 06:21 WBC 8.06 9.93 (4.8-10.8) K/ul RBC 4.14 L 3.96 L (4.20-5.40) M/uL Hgb 10.9 L 10.7 L (12.0-16.0) g/dl Hct 33.1 L 31.2 L (37.0-47.0) % MCV 80.0 78.8 L (80.0-100.0) fL MCH 26.3 27.0 (25.0-34.0) pg MCHC 32.9 34.3 (32.0-36.0) g/dL RDW Std Deviation 59.4 H 56.8 H (36.4-46.3) fL RDW Coeff of Geena 21.2 H 20.5 H (11.5-14.5) % Plt Count 202 204 (130-400) K/uL MPV 11.4 11.5 (9.4-12.4) fL SARS-CoV-2, RNA, NAAT NEGATIVE (NEGATIVE) PE: General: Alert, orientedx3, NAD Abd: soft, NT, fundus firm, below Umbilicus Perineum intact, Lochia rubra minimal Ext; NT, no edema AP: 27 yo s/p , ppd# 1 VSS Afebrile doing well Continue routine care All questions were answered D/C home tonight or in am per her decision Results & Data Vital Signs (Past 12 Hours) Vital Signs Temp Pulse Resp BP Pulse Ox O2 Del Method 10/27/22 07:15 36.6 C 74 16 106/61 Room Air 10/27/22 04:20 36.4 C L 72 16 112/69 97 Room Air 10/27/22 00:15 36.4 C L 76 16 110/67 97 Room Air 10/26/22 21:45 36.6 C 79 18 112/68 97 Room Air 10/26/22 20:45 36.6 C 18
[2022-10-27] MEDS ORDERED: NON-FORMULARY MEDICATION (Prenatal No.144-Folic Acid [Prenatal] 400 mcg Tablet,Chewable) PO SCH (09:00)
[2022-10-27] MEDS ORDERED: bisacodyL 5 MG TABEC PO SCH (20:00)
== END 2022-10-27 19:07 | disposition home or self-care (01) | DRG 807 ==
LOC: 4S1 07:35 → 4E1 21:21